=== PATIENT | male | born 1965 | race African-American/Black ===

== ENCOUNTER → 2024-03-31 | Outpatient (CLI) | payer OTHER ==
[~2024-03-31] MED LIST: FAMO40TA3; FEBU40TA4; HYDR-3490; LOSA100T46; NIFE-3; PREDOPD
== END ==
LOC: M RAD 09:42
PROVIDERS: ATTEND Internal Medicine Medical Oncology
DX: D47.2 Monoclonal gammopathy (principal)

== ENCOUNTER → 2025-03-29 | Outpatient (CLI) | payer OTHER ==
[~2025-03-29] MED LIST changes: +AMLO2.5T3; +D 50CAP2; +ROSU10TA61
== END ==
LOC: M CARPUL 10:34
PROVIDERS: ATTEND Internal Medicine
DX: R01.1 Cardiac murmur, unspecified (principal)

== ENCOUNTER 2025-04-28 06:34 | Day surgery (SDC) | payer OTHER ==
[~2025-04-28] VITALS: Ht 175.3 cm; Wt 81.1 kg
[~2025-04-28 06:34] MED LIST changes: +AMLO2.5T3 PO; +FAMO20TA5 PO; +FEBU40TA4 PO; +HYDR-3490 PO; +LOSA100T46 PO; +NAPR-1405 PO; +PREDOPD OU; +ROSU10TA61 PO; +VITA100093 PO
[2025-04-28 07:43] VITALS: TEMP 97.9
[2025-04-28] MEDS ORDERED: LIDOCAINE 2% 100 MG/5 ML SDV (FOR ANES.) As Ordered ONE (07:45)
[2025-04-28 09:33] VITALS: BP 145/91; O2SAT 98
== END 2025-04-28 09:38 | disposition home or self-care (01) ==
LOC: M OPP 06:34
PROVIDERS: ATTEND Surgery
DX: Z12.11 Encounter for screening for malignant neoplasm of colon (principal); Z79.899 Other long term (current) drug therapy